=== PATIENT | male | born 2000 | race African-American/Black ===

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

== ENCOUNTER 2019-01-31 19:18 | Emergency (ER) | payer OTHER ==
[~2019-01-31] VITALS: Ht 170.2 cm; Wt 50.0 kg
[2019-01-31] MEDS ORDERED: BACITRACIN 0.9 GM PACKET OINTMENT TP ONE (20:45)
[2019-01-31] MEDS ORDERED: LIDOCAINE/PF 1% 5 ML VIAL INJ ONE (20:45)
[2019-01-31 21:26] VITALS: BP 122/78
== END 2019-01-31 21:29 | disposition home or self-care (01) ==
LOC: EMS 19:19
DX: S61.512A Laceration without foreign body of left wrist, initial encounter (principal); F17.210 Nicotine dependence, cigarettes, uncomplicated; W25.XXXA Contact with sharp glass, initial encounter; Y93.89 Activity, other specified; Y92.89 Other specified places as the place of occurrence of the external cause; Y99.8 Other external cause status
CPT/HCPCS: 12002; 99283; 99406; J3490